=== PATIENT | female | born 1975 | race Caucasian/White ===

== ENCOUNTER 2024-04-27 03:22 | Day surgery (SDC) | payer OTHER ==
[~2024-04-27] VITALS: Ht 167.6 cm; Wt 56.8 kg
[2024-04-27] VITALS (205 sets, daily range): BP systolic 76–160; BP diastolic 38–118
[2024-04-27] MEDS ORDERED: PHENYLEPHRINE HCL 10 MG in SODIUM CHLORIDE 0.9% 250 ML IV PRN (07:20)
[2024-04-27] MEDS ORDERED: diazePAM 5 MG/TAB PO PRN ×2 (07:30→08:30)
[2024-04-27] MEDS ORDERED: SCOPOLAMINE 1.5 MG DIS TD PRN (07:30)
[2024-04-27] MEDS ORDERED: FAMOTIDINE 20 MG/TAB PO PRN (07:30)
[2024-04-27] MEDS ORDERED: PANTOPRAZOLE SODIUM Sesquihydr 40 MG/TAB PO PRN (07:30)
[2024-04-27] MEDS ORDERED: LACTATED RINGER'S 1,000 ML IV PRN ×2 (07:30→10:05)
[2024-04-27] MEDS ORDERED: ALBUTEROL SULFATE 2.5 MG VIAL IN PRN (07:30)
[2024-04-27] MEDS ORDERED: CYANOCOBALAMIN 500 MCG/TAB ( B12) PO PRN (07:30)
[2024-04-27] MEDS ORDERED: cloNIDine HCL 0.1 MG/TAB PO PRN (07:30)
[2024-04-27] MEDS ORDERED: SODIUM CHLORIDE 0.9% 1,000 ML IV PRN ×3 (07:30→19:00)
--- NOTE | 2024-04-27 07:30 | NUR ---
Arrival & Pre-treatment Patient arrived to the ANR suite, identification and demographics confirmed. Patient to room 7, AAO, ambulatory, vitals obtained, ID/allergy/fall bands placed, changed into hospital gown, LORENE hose, and non-slip socks. Procedure and timeline explained for treatment and discharge. All questions answered and the patient presents no concerns at this time. V/S assessed, call light is near. Dr. Gee telephoned with patient intake information including usage, dose, last dose/time taken and initial vital signs. Patient history and allergies reviewed with MD. Orders received for 10mg PO Valium and 0.2mg PO Clonidine now. Will reassess per protocol and update MD with assessment and vitals.
[2024-04-27] MEDS ORDERED: ASCORBIC ACID 4,000 MG in SODIUM CHLORIDE 0.9% 1,000 ML IV SCH (08:00)
--- NOTE | 2024-04-27 08:00 | NUR ---
Patient medicated per MD orders. In addition to Clonidine and Valium, patient received 1000 mcg B12 PO, 20 mg Pepcid PO, and Scopolamine TD patch. Medication indication and education provided prior to adminstration.
--- NOTE | 2024-04-27 09:00 | NUR ---
PATIENT BELONGINGS ASSESSED; NO CONTRABAND FOUND. ALL ITEMS PLACED IN LOCKER # [id number].
[2024-04-27 09:36] LABS: ALBUMIN 4.3 g/dL (3.2-5.0); BILIRUBIN, TOTAL 0.7 mg/dL (0.02-1.3); CREATININE 0.8 mg/dL (0.5-1.0); POTASSIUM 4.3 mmol/l (3.5-5.1)
[2024-04-27] MEDS ORDERED: PROPOFOL 10 MG/ML 100ML VIAL IV PRN (10:05)
[2024-04-27] MEDS ORDERED: MAGNESIUM SULFATE HEPTAHYDRATE 100 ML IV PRN (10:05)
[2024-04-27] MEDS ORDERED: LIDOCAINE HCL 1% (10MG/ML) 100 MG/10 ML MDV VT PRN ×2 (10:05)
[2024-04-27] MEDS ORDERED: STERILE WATER FOR IRRIGATION 1,000 ML BTL IR PRN (10:05)
[2024-04-27] MEDS ORDERED: MIDAZOLAM HCL 2 MG/2 ML VIAL IV PRN ×3 (10:05→15:05)
[2024-04-27] MEDS ORDERED: NALTREXONE HCL 50 MG/TAB VT PRN (10:05)
[2024-04-27] MEDS ORDERED: diazePAM 5 MG/TAB VT PRN (10:05)
[2024-04-27] MEDS ORDERED: THIAMINE HCL 100 MG/ML 2ML VIAL IV PRN (10:05)
[2024-04-27] MEDS ORDERED: PROPOFOL 100 ML IV PRN (10:05)
[2024-04-27] MEDS ORDERED: POTASSIUM CHLORIDE 20 MEQ/100 ML BAG IV PRN (10:05)
[2024-04-27] MEDS ORDERED: OCTREOTIDE ACETATE 100 MCG/VIAL SDV SC PRN (10:05)
[2024-04-27] MEDS ORDERED: LIDOCAINE HCL 1% (10MG/ML) 100 MG/10 ML MDV IV PRN (10:05)
[2024-04-27] MEDS ORDERED: cloNIDine HYDROCHLORIDE 100 MCG/ML 10 ML INJ IV PRN (10:05)
[2024-04-27] MEDS ORDERED: SUCCINYLCHOLINE CHLORIDE 20 MG/ML 10ML VIAL IV PRN (10:05)
[2024-04-27] MEDS ORDERED: ONDANSETRON HCl 4 MG/2 ML SDV IV PRN ×3 (10:05→19:00)
[2024-04-27] MEDS ORDERED: ROCURONIUM BROMIDE 10 MG/ML 5ML VIAL IV PRN (10:05)
[2024-04-27] MEDS ORDERED: DiphenhydrAMINE HCL 50 MG/ML SDV IV PRN (10:05)
[2024-04-27] MEDS ORDERED: cloNIDine HCL 0.1 MG/TAB VT PRN (10:05)
[2024-04-27 10:35] LABS: BASO% 0.8 % (0-3); EOS% 3.7 % (0-8); HEMOGLOBIN 16.6 g/dl (12.0-16.0); IMMATURE GRANULOCYTES 0.2 % (0.0-5.0); LYMPH% 22.8 % (15-41); MEAN CELL VOLUME 94.3 fL CALC (80.0-100.0); MEAN CORPUSCULAR HGB 29.5 pG CALC (26.0-32.0); MEAN CORPUSCULAR HGB CONC 31.3 g/dL CAL (32.0-36.0); MONO% 6.8 % (2-13); NEUT# 3.38 thou/uL (2.00-7.15); NEUT% 65.7 % (42-76); RED BLOOD COUNT 5.62 mill/uL (4.20-5.60); RED CELL DISTRI WIDTH 13.1 % (11.5-15.5)
--- NOTE | 2024-04-27 10:59 | NUR ---
Induction Note Time out performed at 1059. Patient placed on monitors, Thom hugger, bilateral wrist restraints applied for ET tube protection. Versed 5mg given IV push at 1100 Tourniquet applied to RT arm Lidocaine 100mg given [id number] IV push followed by Rocoronium 10mg at 1102 IV push and held for 90 seconds. Propofol bolus of 110mg given at 1104 IV push. Succinylcholine 80mg given IV push at 1105. Smooth intubation with 7.5 ETT. Positive CO2. Positive Auscultation for air exchange. Patient placed on ventilator for spontaneous ventilation. Placed on Propofol IV drip at 1106. OG inserted. Positive air on auscultation. Positive gastric content. Stomach washed at this time.
--- NOTE | 2024-04-27 11:25 | NUR ---
OG close note Stomach washed at this time. Naltrexone 50 mg with Clonidine 0.1 mg via OG tube. OG will be clamped for 45 minutes.
[2024-04-27] MEDS ORDERED: DEXMEDETOMIDINE HCL IN SODIUM 100 ML IV PRN (11:55)
--- NOTE | 2024-04-27 12:10 | NUR ---
OG open note OG open at this time. Gastric content draining into drainage bag. OG to drain for 45 minutes. Propofol will be titrated down based on patient.
[2024-04-27] MEDS ORDERED: LABETALOL HCL 20 MG/ 4 ML CARTRG IV SCH (12:45)
--- NOTE | 2024-04-27 12:55 | NUR ---
OG close note Stomach washed at this time. Naltrexone 50 mg with Clonidine 0.2 mg via OG tube. OG will be clamped for 45 minutes.
[2024-04-27] MEDS ORDERED: LABETALOL HCL 100 MG/20 ML VIAL IV SCH (13:00)
[2024-04-27] MEDS ORDERED: NALTREXONE50 MG PO (14:29)
[2024-04-27] MEDS ORDERED: KLONOPIN2 MG PO (14:30)
[2024-04-27] MEDS ORDERED: CLONIDINE0.1 MG PO (14:30)
[2024-04-27] MEDS ORDERED: clonazePAM 1 MG/TAB PO PRN (15:00)
--- NOTE | 2024-04-27 16:00 | NUR ---
Extubation note Closing medications given Benadryl 50mg IV push, Decadron 10mg IV push,Magnesium 4 grams IV, Zofran 8mg IV push, Octreotide 100mcg SC. Stomach washed out prior to extubation. Suctioned gastric content. OG removed. Patient extubated. Propofol Discontinued. Wrist restraints removed. Thom hugger Removed. See ANR Moderate sedate recovery record for further notes and assessment.
--- NOTE | 2024-04-27 16:42 | NUR ---
Patient's support person (SP) telephoned with update. All questions answered, no concerns presented at this time. SP agreeable to POC.
--- NOTE | 2024-04-27 17:15 | NUR ---
PATIENT ARRIVED TO ID FROM [facility]R; ON ; BREATHING UNLABORED; NO S/S OF DISTRESS; IV SITE CLEAN AND INTACT RUNNING WITH NS @100; BEDSIDE REPORT FROM LILIANA; PERSONAL ITEMS IN ANR LCOKER; REBECCA HUGGER APPLIED TO BED; EYE COVERING APPLIED; CALL LIGHT WITHIN REACH, BED IN LOWEST POSTION;SAFTEY MEASURES IN PLACE
--- NOTE | 2024-04-27 17:15 | NUR ---
Transfer Note Patient transferred to medical-surgical unit private room. Report given to primary nurse at bedside. Head to toe assessment, treatment, medications, I/O, IV access reviewed with primary nurse. All questions answered. IVF to continue at 100 ml/hr, NC @ 2L, no adventitious breath sounds. Safety precautions in place, bed locked and in lowest position, call light in reach. Handoff of care complete at this time.
[2024-04-27] MEDS ORDERED: ACETAMINOPHEN 500 MG TAB PO PRN (19:00)
[2024-04-27] MEDS ORDERED: KETOROLAC TROMETHAMINE 30 MG/ML SDV IV PRN (19:00)
[2024-04-27] MEDS ORDERED: PROMETHAZINE HCL 12.5 MG in SODIUM CHLORIDE 0.9% 50 ML IV PRN (19:00)
[2024-04-27] MEDS ORDERED: HALOPERIDOL LACTATE 5 MG/ML SDV IV PRN (19:00)
[2024-04-27] MEDS ORDERED: PROMETHAZINE HCL 25 MG in SODIUM CHLORIDE 0.9% 50 ML IV PRN (19:00)
[2024-04-27] MEDS ORDERED: ACETAMINOPHEN 1,000 MG/100 ML VIAL IV PRN (19:00)
[2024-04-27] MEDS ORDERED: PATIENT' OWN MED CONTROLLED 1 EA DOSE IV PRN (21:00)
[2024-04-27] MEDS ORDERED: cloNIDine HCL 0.1 MG/TAB PO SCH (23:00)
--- NOTE | 2024-04-28 | NUR ---
ADMINISTERED SCHEDULED MEDS PER EMAR AND PT TOLERATED WELL. PT DENIES ANY N/V/P. A/OX2 TO SELF AND PLACE. PT LAYING IN BED SUPINE RESTING COMFORTABLY AT THIS TIME. VSS. NO S/S OF DISTRESS. BED ALARM ON AND SAFETY PRECAUTIONS IN PLACE. SITTER AT BEDSIDE.
[2024-04-28 03:23] VITALS: BP 125/79
[2024-04-28] MEDS ORDERED: clonazePAM 1 MG/TAB PO PRN ×2 (04:00→08:00)
[2024-04-28] MEDS ORDERED: cloNIDine HCL 0.1 MG/TAB PO PRN (04:00)
[2024-04-28] MEDS ORDERED: NALTREXONE HCL 50 MG/TAB PO SCH (04:00)
--- NOTE | 2024-04-28 04:00 | NUR ---
ADMINSITERED SCHEDULED MEDS PER EMAR. PT TOLERATED WELL. PT DENIES ANY N/V/P. DID HAVE ONE EPISODE OF INC DIARHHEA, STAFF ASSISTED WITH CLEANING PT UP, PT WAS ABLE TO AMBULATE TO BATHROOM WITH STEADY GAIT. AND THEN ASSISTED BACK INTO BED. IVF RECONNECTED AND RUNNING PER EMAR. VSS. NO S/S OF DISTRESS. BED ALARM ON AND SAFETY PRECAUTIONS IN PLACE. SITTER AT DOORWAY.
[2024-04-28 04:46] LABS: BASO% 0.3 % (0-3); IMMATURE GRANULOCYTES 0.1 % (0.0-5.0); LYMPH% 8.1 % (15-41); MEAN CELL VOLUME 92.7 fL CALC (80.0-100.0); MEAN CORPUSCULAR HGB 30.5 pG CALC (26.0-32.0); MONO% 1.9 % (2-13); NEUT# 6.49 thou/uL (2.00-7.15); NEUT% 89.6 % (42-76); RED BLOOD COUNT 4.78 mill/uL (4.20-5.60); RED CELL DISTRI WIDTH 12.8 % (11.5-15.5)
[2024-04-28 04:47] LABS: HEMATOCRIT 44.3 % (37.0-47.0); HEMOGLOBIN 14.6 g/dl (12.0-16.0)
[2024-04-28 05:04] LABS: ALBUMIN 3.8 g/dL (3.2-5.0); CREATININE 0.8 mg/dL (0.5-1.0); MAGNESIUM 2.2 mg/dL (1.6-2.3); TOTAL PROTEIN 6.3 g/dL (6.3-8.2)
[2024-04-28 05:10] LABS: BILIRUBIN, TOTAL 1.7 mg/dL (0.02-1.3)
[2024-04-28] MEDS ORDERED: BISMUTH SUBSALICYLATE 262 MG CHW PO PRN (07:30)
[2024-04-28] MEDS ORDERED: cloNIDine HCL 0.1 MG/TAB PO SCH (08:00)
[2024-04-28] MEDS ORDERED: ACETAMINOPHEN 325 MG/TAB PO SCH (08:00)
[2024-04-28] MEDS ORDERED: PANTOPRAZOLE SODIUM Sesquihydr 40 MG/TAB PO SCH (08:00)
[2024-04-28 08:05] VITALS: BP 134/80
--- NOTE | 2024-04-28 08:15 | NUR ---
patient a/o x3; room air; breathing unlabored; patient laying on right side; denied any pain; denied any n/d/v; tolerated her medication; encouraged to try to eat breakfast; no s.s of distress; personal items in anr locker; labs and status of patient was called to provider; patient had three dirrhea and pepto was ordered verbal , patient tolerated with no issies; call light within reach,verbalized understanding on how to use, bed in lowest postion;safety measures in place
--- NOTE | 2024-04-28 08:27 | NUR ---
patient is requesting a shower, area captain assiting with shower
[2024-04-28] MEDS ORDERED: MAGNESIUM OXIDE 400 MG/TAB PO PRN (09:00)
[2024-04-28] MEDS ORDERED: ACETAMINOPHEN 500 MG TAB PO PRN (09:00)
[2024-04-28] MEDS ORDERED: Cholecalciferol 2,000 UNIT/TAB PO PRN (09:00)
--- NOTE | 2024-04-28 12:48 | NUR ---
PROVIDER CAME AND SEEN PATIENT; [place] STATED TO GIVE DISCHARGE MEDICATIONS, TOELRATED HER MEDICATIONS AT THIS TIME; AWAITING DISCHARGE; PATEINT ALREADY SHOWERED; NO COMPLAINTS
--- NOTE | 2024-04-28 13:54 | NUR ---
IV site discontinued, cath intact. No edema , no redness, voices no discomfort. Discharge instructions given. Patient verbalizes understanding of same. Discharged in stable condition via Ambulatory to Home with family. All belongings sent with pt.
== END 2024-04-28 13:47 | disposition home or self-care (01) | DRG 897 ==
LOC: ANR 03:22 → MS2 03:22 → ANR 07:00 → MS2 17:00 → ANR 04-28 13:47
PROVIDERS: ATTEND Anesthesiology
DX: F11.20 Opioid dependence, uncomplicated (principal)
CPT/HCPCS: J1100; J1200; J1920; J2354; J2405; J2704; J3411; J3475; J3480; J3490